=== PATIENT | female | born 2000 | race African-American/Black ===

== ENCOUNTER 2020-09-18 15:33 | Inpatient (IN) | payer MEDICARE, MEDICAID ==
[~2020-09-18] VITALS: Ht 172.7 cm; Wt 71.6 kg
[2020-09-19] MEDS ORDERED: HALOPERIDOL LACTATE 5 MG/ML VIAL ONE (01:12)
[2020-09-19] MEDS ORDERED: DiphenhydrAMINE HCL 50 MG/ML VIAL ONE (01:12)
[2020-09-19] MEDS ORDERED: LORazepam 2 MG/ML VIAL ONE (01:13)
[2020-09-19] MEDS ORDERED: LORazepam 2 MG/ML VIAL IM ONE (01:15)
[2020-09-19] MEDS ORDERED: DiphenhydrAMINE HCL 50 MG/ML VIAL IM ONE (01:15)
[2020-09-19] MEDS ORDERED: HALOPERIDOL LACTATE 5 MG/ML VIAL IM ONE (01:15)
[2020-09-19] MEDS ORDERED: HALOPERIDOL 5 MG TABLET PO PRN (01:15)
[2020-09-19 03:53] VITALS: BP 120/78
[2020-09-19] MEDS ORDERED: INFLUENZA VIRUS VACCINE QVS 2020-21 (6MO+)/PF 60 MCG/0.5 ML SYRINGE IM ONE (06:00)
[2020-09-19 08:25] VITALS: BP 114/65
[2020-09-19 09:26] LABS: BASOPHILS % (AUTO) 0.4 % (0.0-2.0); EOSINOPHILS % (AUTO) 1.7 % (1.0-6.0); HEMATOCRIT 37.2 % (36-46); HEMOGLOBIN 12.5 g/dL (12.0-16.0); LYMPHOCYTES # (AUTO) 4.2 K/uL (1.0-4.8); LYMPHOCYTES % (AUTO) 44.5 % (22.0-44.0); MEAN CORPUSCULAR HEMOGLOBIN 27.7 pg (26.0-34.0); MEAN CORPUSCULAR HGB CONC 33.5 G/dL (31.0-37.0); MEAN CORPUSCULAR VOLUME 83 fL (80-100); MONOCYTES # (AUTO) 0.8 K/uL (0.1-1.0); MONOCYTES % (AUTO) 8.5 % (2.0-9.0); NEUTROPHILS # (AUTO) 4.2 K/uL (1.8-7.7); NEUTROPHILS % (AUTO) 44.9 % (40.0-70.0); PLATELET COUNT (AUTO) 246 K/uL (150-450); RED CELL DISTRIBUTION WIDTH 12.4 % (11.5-14.5)
[2020-09-19 09:58] LABS: ALANINE AMINOTRANSFERASE 27 U/L (12-78); ALKALINE PHOSPHATASE 65 U/L (46-116); ANION GAP 7 mmol/L (8-16); ASPARTATE AMINOTRANSFERASE 22 U/L (15-37); CALCIUM, TOTAL 9.2 mg/dL (8.8-10.5); CARBON DIOXIDE 29 mmol/L (22-29); CHLORIDE 102 mmol/L (98-107); CHOL/HDL RATIO 3.2 (3.9-5.7); CHOLESTEROL 136 mg/dL (131-200); CREATININE 0.75 mg/dL (0.60-1.30); FREE T4 (FREE THYROXINE) 1.41 ng/dL (0.76-1.46); GLOMERULAR FILTR. RATE CALC > 60 mL/min (>60); GLUCOSE,RANDOM 78 mg/dL (70-110); HDL CHOLESTEROL 42 mg/dL (40-60); LDL CHOL (CALC.) 77 mg/dL (0-130); POTASSIUM 4.2 mmol/L (3.5-5.1); SODIUM SERUM 138 mmol/L (136-145); TRIGLYCERIDES 86 mg/dL (15-150); UREA NITROGEN, BLOOD 14 mg/dL (7-18)
[2020-09-19] MEDS: LORazepam 2 MG TABLET PO PRN (10:59)
[2020-09-19] MEDS: ARIPiprazole 5 MG TABLET PO SCH (11:33)
[2020-09-19 16:06] VITALS: BP 108/67
[2020-09-19] MEDS ORDERED: NICOTINE 14 MG/24 HOUR PATCH TD PRN (17:30)
[2020-09-19] MEDS ORDERED: DOCUSATE SODIUM 100 MG CAPSULE PO PRN (17:30)
[2020-09-19] MEDS ORDERED: ALBUTEROL SULFATE HFA 90 MCG/PUFF 8 GM INHALER IH PRN (17:30)
[2020-09-19] MEDS ORDERED: PETROLATUM,WHITE 28 GM JELLY TP PRN (17:30)
[2020-09-19] MEDS ORDERED: MAGNESIUM HYDROXIDE SUSPENSION 30 ML UDCUP PO PRN (17:30)
[2020-09-19] MEDS ORDERED: GuaiFENesin/D-METHORPHAN [SUGAR-FREE] 200-20MG/10 ML SYRUP UDCUP PO PRN (17:30)
[2020-09-19] MEDS ORDERED: ONDANSETRON HCL 4 MG TABLET PO PRN (17:30)
[2020-09-19] MEDS ORDERED: LOPERAMIDE HCL 2 MG CAPSULE PO PRN (17:30)
[2020-09-19] MEDS ORDERED: CloNIDine HCL 0.1 MG TABLET PO PRN (17:30)
[2020-09-19] MEDS ORDERED: MAG HYDROX/AL HYDROX/SIMETH ES 30 ML SUSPENSION UDCUP PO PRN (17:30)
[2020-09-19 21:38] VITALS: BP 126/68
[2020-09-19] MEDS: IBUPROFEN 400 MG TABLET PO PRN (21:43)
[2020-09-20 06:06] VITALS: BP 107/70
[2020-09-20 08:12] VITALS: BP 110/62
[2020-09-20 08:14] LABS: APPEARANCE,URINE TURBID (CLEAR); BILIRUBIN,URINE NEGATIVE (NEGATIVE); GLUCOSE, URINE (UA) NEGATIVE (NEGATIVE); KETONES,URINE NEGATIVE (NEGATIVE); LEUKOCYTE ESTERASE ,URINE NEGATIVE (NEGATIVE); NITRATE,URINE NEGATIVE (NEGATIVE); OCCULT BLOOD,URINE NEGATIVE (NEGATIVE); PROTEIN,URINE NEGATIVE (NEGATIVE); UROBILINOGEN,URINE 0.2 mg/dL (<=1.0)
[2020-09-20] MEDS: ARIPiprazole 5 MG TABLET PO SCH (09:02)
[2020-09-20] MEDS: LORazepam 2 MG TABLET PO PRN (09:02)
[2020-09-20 14:45] VITALS: BP 115/78
[2020-09-20] MEDS: IBUPROFEN 400 MG TABLET PO PRN (14:55)
[2020-09-20 16:05] VITALS: BP 102/63
[2020-09-21 06:27] VITALS: BP 118/62
[2020-09-21 08:35] VITALS: BP 109/63
[2020-09-21] MEDS: ARIPiprazole 5 MG TABLET PO SCH (09:20)
[2020-09-21 09:21] LABS: ANION GAP 7 mmol/L (8-16); CARBON DIOXIDE 28 mmol/L (22-29); CHLORIDE 106 mmol/L (98-107); CREATININE 0.77 mg/dL (0.60-1.30); GLOMERULAR FILTR. RATE CALC > 60 mL/min (>60); GLUCOSE,RANDOM 85 mg/dL (70-110); POTASSIUM 3.8 mmol/L (3.5-5.1); SODIUM SERUM 141 mmol/L (136-145); UREA NITROGEN, BLOOD 12 mg/dL (7-18)
[2020-09-21] MEDS: LORazepam 2 MG TABLET PO PRN (10:52)
[2020-09-21 16:10] VITALS: BP 115/73
[2020-09-21] MEDS: ACETAMINOPHEN 325 MG TABLET PO PRN (20:07)
[2020-09-21] MEDS: ZOLPIDEM TARTRATE 10 MG TABLET PO PRN (21:44)
[2020-09-22 00:42] VITALS: BP 123/85
[2020-09-22 08:04] VITALS: BP 142/78
[2020-09-22] MEDS: ARIPiprazole 5 MG TABLET PO SCH (08:42)
[2020-09-22] MEDS: ACETAMINOPHEN 325 MG TABLET PO PRN (09:34)
[2020-09-22 16:14] VITALS: BP 119/70
[2020-09-22] MEDS: ZOLPIDEM TARTRATE 10 MG TABLET PO PRN (21:07)
[2020-09-23 06:10] VITALS: BP 114/61
[2020-09-23 08:14] VITALS: BP 117/65
[2020-09-23] MEDS: ARIPiprazole 5 MG TABLET PO SCH (08:33)
[2020-09-23] MEDS: IBUPROFEN 400 MG TABLET PO PRN (09:30)
[2020-09-23 16:06] VITALS: BP 110/70
[2020-09-23] MEDS: PALIPERIDONE 3 MG ER TABLET PO SCH (20:40)
[2020-09-24 06:14] VITALS: BP 132/79
[2020-09-24 08:47] VITALS: BP 111/62
[2020-09-24 08:52] LABS: COVID AG,FIA SOURCE NASOPHARYNGEAL
[2020-09-24] MEDS: FLUoxetine HCL 20 MG CAPSULE PO SCH (09:05)
[2020-09-24 16:10] VITALS: BP 134/81
[2020-09-24] MEDS: LORazepam 2 MG TABLET PO PRN (16:40)
[2020-09-24] MEDS: ACETAMINOPHEN 325 MG TABLET PO PRN (17:23)
[2020-09-24] MEDS: PALIPERIDONE 3 MG ER TABLET PO SCH (20:31)
[2020-09-25 00:14] VITALS: BP 102/63
[2020-09-25 08:06] VITALS: BP 117/56
[2020-09-25] MEDS: FLUoxetine HCL 20 MG CAPSULE PO SCH (08:23)
[2020-09-25 16:11] VITALS: BP 130/67
[2020-09-25] MEDS: PALIPERIDONE 3 MG ER TABLET PO SCH (20:35)
[2020-09-26 06:11] VITALS: BP 117/70
[2020-09-26 08:28] VITALS: BP 104/57
[2020-09-26] MEDS: FLUoxetine HCL 20 MG CAPSULE PO SCH (09:24)
[2020-09-26] MEDS: ACETAMINOPHEN 325 MG TABLET PO PRN (12:32)
[2020-09-26 13:32] VITALS: BP 115/60
[2020-09-26 16:04] VITALS: BP 112/64
[2020-09-26] MEDS: IBUPROFEN 400 MG TABLET PO PRN (17:05)
[2020-09-26] MEDS: LORazepam 2 MG TABLET PO PRN (17:05)
[2020-09-26] MEDS: PALIPERIDONE 3 MG ER TABLET PO SCH (20:30)
[2020-09-27 00:09] VITALS: BP 103/64
[2020-09-27 08:09] VITALS: BP 102/60
[2020-09-27] MEDS: FLUoxetine HCL 20 MG CAPSULE PO SCH (08:36)
[2020-09-27] MEDS: LORazepam 2 MG TABLET PO PRN (10:22)
[2020-09-27 16:05] VITALS: BP 119/68
[2020-09-27] MEDS: PALIPERIDONE 3 MG ER TABLET PO SCH (20:35)
[2020-09-28 00:16] VITALS: BP 102/64
[2020-09-28] MEDS: FLUoxetine HCL 20 MG CAPSULE PO SCH (08:18)
[2020-09-28 08:26] VITALS: BP 106/69
[2020-09-28 16:04] VITALS: BP 130/82
[2020-09-28] MEDS: PALIPERIDONE 3 MG ER TABLET PO SCH (20:09)
[2020-09-29 06:04] VITALS: BP 114/68
[2020-09-29] MEDS ORDERED: PALI3TAB14 PO (07:49)
[2020-09-29] MEDS ORDERED: FLUO-191 PO (07:49)
[2020-09-29 08:08] VITALS: BP 104/70
[2020-09-29] MEDS: FLUoxetine HCL 20 MG CAPSULE PO SCH (08:31)
== END 2020-09-29 11:14 | disposition home or self-care (01) | DRG 885 ==
LOC: B2X 09-19 01:27
DX: F25.0 Schizoaffective disorder, bipolar type (principal); F15.10 Other stimulant abuse, uncomplicated; G44.209 Tension-type headache, unspecified, not intractable; T39.312A Poisoning by propionic acid derivatives, intentional self-harm, initial encounter; Y92.89 Other specified places as the place of occurrence of the external cause; Z91.5 Personal history of self-harm; M54.9 Dorsalgia, unspecified; R10.13 Epigastric pain; Z79.899 Other long term (current) drug therapy; Z20.822 Contact with and (suspected) exposure to COVID-19; Z28.21 Immunization not carried out because of patient refusal
CPT/HCPCS: 84439; 84443; 87081; 87426; J1200; J1630; J2060